=== PATIENT | male | born 1980 | race Caucasian/White ===

== ENCOUNTER 2024-08-09 06:11 | Outpatient (CLI) | payer OTHER ==
[2024-08-09 07:16] LABS: PH,URINE 5.5 (5.0-8.0); URINE APPEARANCE Clear; URINE BILIRRUBIN Negative (NEGATIVE); URINE BLOOD Negative; URINE COLOR Yellow; URINE GLUCOSE Negative (NEGATIVE); URINE KETONE Trace (NEGATIVE); URINE LEUKOCYTE Negative; URINE NITRATE Negative; URINE PROTEIN 30 (NEGATIVE); URINE UROBILINOGEN 0.2 E.U./dl
[2024-08-09 07:20] LABS: URINE BACTERIA 26.9 uL (0.0-1933); URINE EPITHELIAL CELLS 13.1 uL (0.0-38.8); URINE WBC 11.5 uL (0.0-23.2)
[2024-08-09 07:22] LABS: URINE RBC 1.9 uL (0.0-20.8)
[2024-08-09 07:26] LABS: BASO % 0.4 % (0.1-1.2); EOS # 0.22 (0.04-0.54); HEMOGLOBIN 12.4 g/dL (13.7-17.5); LYMPH # 2.22 (1.18-3.74); MONO # 0.79 (0.24-0.82); MONO % 10.7 % (4.7-12.5); NEUT # 4.13 (1.56-6.13); NEUT % 55.6 % (34.0-71.1); PLATELET COUNT 250 K/uL (163-369); RED BLOOD COUNT 4.59 M/uL (4.63-6.08); RED CELL DISTRIBUTION WIDTH 14.2 % (11.6-14.4)
[2024-08-09 07:59] LABS: ALBUMIN 3.5 gm/dL (3.4-5.0); CALCIUM 8.9 mg/dL (8.5-10.1); CHOL HDL RATIO 2.9 (0-5.0); CREATININE SERUM 1.47 mg/dL (0.70-1.30); GFR 51.8; POTASSIUM 5.07 mEq/L (3.5-5.1)
== END 2024-08-09 06:20 | disposition home or self-care (01) ==
LOC: LAB 06:11
DX: N18.9 Chronic kidney disease, unspecified (principal); I12.9 Hypertensive chronic kidney disease with stage 1 through stage 4 chronic kidney disease, or unspecified chronic kidney disease; E11.22 Type 2 diabetes mellitus with diabetic chronic kidney disease; R80.1 Persistent proteinuria, unspecified; E55.9 Vitamin D deficiency, unspecified; E78.2 Mixed hyperlipidemia; E79.0 Hyperuricemia without signs of inflammatory arthritis and tophaceous disease; D64.9 Anemia, unspecified

== ENCOUNTER → 2024-10-31 06:08 | Outpatient (CLI) | payer OTHER ==
[2024-10-31 07:20] LABS: BASO % 0.4 % (0.1-1.2); EOS # 0.21 (0.04-0.54); EOS % 2.6 % (0.7-7.0); LYMPH # 2.36 (1.18-3.74); LYMPH % 29.7 % (19.3-53.1); MEAN PLATELET VOLUME 10.20 fl (9.4-12.4); MONO # 0.75 (0.24-0.82); MONO % 9.4 % (4.7-12.5); NEUT # 4.58 (1.56-6.13); NEUT % 57.6 % (34.0-71.1); RED CELL DISTRIBUTION WIDTH 14.6 % (11.6-14.4)
[2024-10-31 07:24] LABS: URINE APPEARANCE Clear; URINE BILIRRUBIN Negative (NEGATIVE); URINE BLOOD Negative; URINE COLOR Yellow; URINE GLUCOSE Negative (NEGATIVE); URINE KETONE Trace (NEGATIVE); URINE LEUKOCYTE Negative; URINE NITRATE Negative; URINE PROTEIN 30 (NEGATIVE); URINE UROBILINOGEN 0.2 E.U./dl
[2024-10-31 07:26] LABS: URINE BACTERIA 10.7 uL (0.0-1933); URINE EPITHELIAL CELLS 9.3 uL (0.0-38.8); URINE WBC 5.9 uL (0.0-23.2)
[2024-10-31 07:36] LABS: URINE CAST 0.58 uL (0.0-1.40); URINE RBC 1.7 uL (0.0-20.8)
[2024-10-31 08:19] LABS: ALT/SGPT 26.0 U/L (12-78); AST/SGOT 21.0 U/L (15-37); BILIRUBIN TOTAL 0.51 mg/dL (0.3-1.2); BUN CREA RATIO 12.0 (7.0-25.0); CHOL HDL RATIO 3.2 (0-5.0); CREATININE SERUM 1.68 mg/dL (0.70-1.30); GFR 44.21; GLOBULINA 4.3 G/DL (2.4-3.5); GLUCOSE FASTING 131.0 mg/dL (65-100); HDL 29.0 mg/dl (40-60); LDL 30.0 mg/dl (0-130); OSMOLALITY SERUM 284.0 MOSM/KG (275-295); TSH 0.397 uIU/mL (0.358-3.74); VLDL 35.0 (0-39)
== END | disposition home or self-care (01) ==
LOC: LAB 06:08
DX: Z00.00 Encounter for general adult medical examination without abnormal findings (principal)

== ENCOUNTER 2024-11-25 12:26 | Outpatient (CLI) | payer OTHER | END 2024-11-25 12:28 | disposition home or self-care (01) | LOC: NUCLEAR 12:26 | DX: I73.9 Peripheral vascular disease, unspecified (principal) ==

== ENCOUNTER 2024-11-28 12:26 | Outpatient (CLI) | payer OTHER | END 2024-11-28 12:27 | disposition home or self-care (01) | LOC: NUCLEAR 12:26 | DX: I73.9 Peripheral vascular disease, unspecified (principal) ==

== ENCOUNTER 2025-01-18 07:52 | Outpatient (CLI) | payer OTHER ==
[2025-01-18 09:14] LABS: URINE APPEARANCE Clear; URINE BILIRRUBIN Negative (NEGATIVE); URINE BLOOD Negative; URINE COLOR Yellow; URINE KETONE Trace (NEGATIVE); URINE LEUKOCYTE Negative; URINE NITRATE Negative; URINE PROTEIN 30 (NEGATIVE); URINE UROBILINOGEN 0.2 E.U./dl
[2025-01-18 09:21] LABS: URINE BACTERIA 4.8 uL (0.0-1933); URINE EPITHELIAL CELLS 7.6 uL (0.0-38.8); URINE WBC 5.8 uL (0.0-23.2)
[2025-01-18 09:22] LABS: BASO % 0.7 % (0.1-1.2); EOS # 0.23 (0.04-0.54); EOS % 3.1 % (0.7-7.0); LYMPH # 2.47 (1.18-3.74); LYMPH % 33.7 % (19.3-53.1); MEAN PLATELET VOLUME 10.40 fl (9.4-12.4); MONO # 0.71 (0.24-0.82); MONO % 9.7 % (4.7-12.5); NEUT # 3.86 (1.56-6.13); NEUT % 52.7 % (34.0-71.1); RED CELL DISTRIBUTION WIDTH 13.8 % (11.6-14.4)
[2025-01-18 09:25] LABS: URINE CAST 0.00 uL (0.0-1.40); URINE GLUCOSE 100 MG/DL (NEGATIVE); URINE RBC 1.3 uL (0.0-20.8)
[2025-01-18 09:53] LABS: ALT/SGPT 22.0 U/L (12-78); AST/SGOT 16.0 U/L (15-37); BILIRUBIN TOTAL 0.36 mg/dL (0.3-1.2); BUN CREA RATIO 19.0 (7.0-25.0); CHOL HDL RATIO 3.6 (0-5.0); CREATININE SERUM 1.34 mg/dL (0.70-1.30); GFR 57.39; GLOBULINA 4.1 G/DL (2.4-3.5); GLUCOSE FASTING 162.0 mg/dL (65-100); HDL 29.0 mg/dl (40-60); LDL 46.0 mg/dl (0-130); OSMOLALITY SERUM 287.0 MOSM/KG (275-295); TSH 0.71 uIU/mL (0.358-3.74); VLDL 28.0 (0-39)
== END 2025-01-18 11:12 | disposition home or self-care (01) ==
LOC: LAB 07:52
DX: Z12.11 Encounter for screening for malignant neoplasm of colon (principal); N18.1 Chronic kidney disease, stage 1; N39.0 Urinary tract infection, site not specified; E03.8 Other specified hypothyroidism; E11.65 Type 2 diabetes mellitus with hyperglycemia; E78.2 Mixed hyperlipidemia; I10 Essential (primary) hypertension; E11.8 Type 2 diabetes mellitus with unspecified complications